=== PATIENT | female | born 1980 | race American Indian/Alaskan Native ===

== ENCOUNTER 2016-12-29 23:52 | Emergency (ER) | payer MEDICAID ==
[2016-12-29 23:59] VITALS: BP 114/73
--- NOTE | 2016-12-30 03:42 | Emergency Department Report ---
ED ENT HPI - General Chief complaint: Upper Respiratory Infection Stated complaint: COUGH/CONGESTON/HEADACHE/RT EARACHE/SORE THROAT Time Seen by Provider: 12/30/16 02:47 Source: patient Mode of arrival: Ambulatory Limitations: No Limitations - History of Present Illness Initial comments: This is a 36-year-old female that presents with sore throat and right ear pain x 3 days. Patient describes sore throat as swallowing razer blades. 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 Patient denies headache, CP, cough, wheezing, SOB, abd pain, stiff neck, fever, chills, numbness, drooling, difficulty swallowing, or hoarseness. Patient has allergies to codeine and morphine. Denies significant past medical history. Patient stated when she takes antibiotics she developed these infection and stated she would like to be treated for yeast infection if antibiotics are prescribed. MD complaint: sore throat -: Gradual, days(s) (3) Location: R ear, throat Severity: moderate Severity scale (0 -10): 8 Consistency: constant Improves with: none Worsens with: swallowing Associated Symptoms: sore throat. denies: fever, cough, gum swelling, toothache , pain with swallowing, tinnitus, hearing loss, discharge from ear, rhinorrhea - Related Data Previous Rx's Medication Instructions Recorded Last Taken Type Cyclobenzaprine HCl [Flexeril 5 MG 5 mg PO TID #20 tab 02/23/16 Unknown Rx TAB] Ibuprofen [Motrin 800 MG tab] 800 mg PO Q8HR PRN #30 tablet 02/23/16 Unknown Rx ALBUTEROL Inhaler [ProAir HFA 2 puff IH QID PRN #1 inha 09/12/16 Unknown Rx Inhaler] Fluticasone [Flonase] 1 spray NS QDAY #1 bottle 09/12/16 Unknown Rx Naproxen [Naprosyn] 500 mg PO BID #30 tablet 09/12/16 Unknown Rx guaiFENesin/DEXTROMETHORPHAN 1 each PO Q12H #24 tab 09/12/16 Unknown Rx [Mucinex Dm ER 1,200-60 mg Tab] Amoxicillin 500 mg PO BID #20 capsule 12/30/16 Unknown Rx Fluconazole [Diflucan TAB] 150 mg PO ONCE #1 tablet 12/30/16 Unknown Rx Allergies Allergy/AdvReac Type Severity Reaction Status Date / Time codeine AdvReac Anaphylaxis Verified 06/11/14 10:06 morphine AdvReac Anaphylaxis Verified 06/11/14 10:06 ED Dental HPI - General Chief complaint: Upper Respiratory Infection Stated complaint: COUGH/CONGESTON/HEADACHE/RT EARACHE/SORE THROAT Time Seen by Provider: 12/30/16 02:47 Source: patient Mode of arrival: Ambulatory Limitations: No Limitations - Related Data Previous Rx's Medication Instructions Recorded Last Taken Type Cyclobenzaprine HCl [Flexeril 5 MG 5 mg PO TID #20 tab 02/23/16 Unknown Rx TAB] Ibuprofen [Motrin 800 MG tab] 800 mg PO Q8HR PRN #30 tablet 02/23/16 Unknown Rx ALBUTEROL Inhaler [ProAir HFA 2 puff IH QID PRN #1 inha 09/12/16 Unknown Rx Inhaler] Fluticasone [Flonase] 1 spray NS QDAY #1 bottle 09/12/16 Unknown Rx Naproxen [Naprosyn] 500 mg PO BID #30 tablet 09/12/16 Unknown Rx guaiFENesin/DEXTROMETHORPHAN 1 each PO Q12H #24 tab 09/12/16 Unknown Rx [Mucinex Dm ER 1,200-60 mg Tab] Amoxicillin 500 mg PO BID #20 capsule 12/30/16 Unknown Rx Fluconazole [Diflucan TAB] 150 mg PO ONCE #1 tablet 12/30/16 Unknown Rx Allergies Allergy/AdvReac Type Severity Reaction Status Date / Time codeine AdvReac Anaphylaxis Verified 06/11/14 10:06 morphine AdvReac Anaphylaxis Verified 06/11/14 10:06 ED Review of Systems ROS: Stated complaint: COUGH/CONGESTON/HEADACHE/RT EARACHE/SORE THROAT Other details as noted in HPI Constitutional: denies: chills, fever Eyes: denies: eye pain, eye discharge, vision change ENT: denies: ear pain, throat pain Respiratory: denies: cough, shortness of breath, wheezing Cardiovascular: denies: chest pain, palpitations Endocrine: no symptoms reported Gastrointestinal: denies: abdominal pain, nausea, diarrhea Genitourinary: denies: urgency, dysuria, discharge Musculoskeletal: denies: back pain, joint swelling, arthralgia Skin: denies: rash, lesions Neurological: denies: headache, weakness, paresthesias Psychiatric: denies: anxiety, depression Hematological/Lymphatic: denies: easy bleeding, easy bruising ED Past Medical Hx - Past Medical History Previous Medical History?: Yes Hx Asthma: Yes Hx Tuberculosis: Yes (PREVIOUSLY TREATED TWICE) Additional medical history: TB - Surgical History Past Surgical History?: Yes Additional Surgical History: x 4, Tubaligation, Ectopic x 2 - Social History Smoking Status: Never Smoker Substance Use Type: None - Medications Home Medications: Home Medications Medication Instructions Recorded Confirmed Last Taken Type Cyclobenzaprine HCl [Flexeril 5 MG 5 mg PO TID #20 tab 02/23/16 Unknown Rx TAB] Ibuprofen [Motrin 800 MG tab] 800 mg PO Q8HR PRN #30 tablet 02/23/16 Unknown Rx ALBUTEROL Inhaler [ProAir HFA 2 puff IH QID PRN #1 inha 09/12/16 Unknown Rx Inhaler] Fluticasone [Flonase] 1 spray NS QDAY #1 bottle 09/12/16 Unknown Rx Naproxen [Naprosyn] 500 mg PO BID #30 tablet 09/12/16 Unknown Rx guaiFENesin/DEXTROMETHORPHAN 1 each PO Q12H #24 tab 09/12/16 Unknown Rx [Mucinex Dm ER 1,200-60 mg Tab] Amoxicillin 500 mg PO BID #20 capsule 12/30/16 Unknown Rx Fluconazole [Diflucan TAB] 150 mg PO ONCE #1 tablet 12/30/16 Unknown Rx ED Physical Exam - General Limitations: No Limitations General appearance: alert, in no apparent distress - Head Head exam: Present: atraumatic, normocephalic, normal inspection - Eye Eye exam: Present: normal appearance, PERRL, EOMI. Absent: scleral icterus, conjunctival injection, nystagmus, periorbital swelling, periorbital tenderness - ENT ENT exam: Present: normal exam, mucous membranes moist, TM's normal bilaterally , normal external ear exam - Expanded ENT Exam Expanded Mouth exam: Present: normal external inspection, tongue normal. Absent: drooling, trismus, muffled voice, tongue elevation, laceration Teeth exam: Present: normal inspection Throat exam: Positive: tonsillar erythema, tonsillomegaly (2+), tonsillar exudate. Negative: R peritonsillar mass, L peritonsillar mass - Neck Neck exam: Present: normal inspection, full ROM. Absent: tenderness, meningismus, lymphadenopathy, thyromegaly - Respiratory Respiratory exam: Present: normal lung sounds bilaterally. Absent: respiratory distress, wheezes, rales, rhonchi, stridor, chest wall tenderness, accessory muscle use, decreased breath sounds, prolonged expiratory - Cardiovascular Cardiovascular Exam: Present: regular rate, normal rhythm, normal heart sounds. Absent: bradycardia, tachycardia, irregular rhythm, systolic murmur, diastolic murmur, rubs, gallop - GI/Abdominal GI/Abdominal exam: Present: soft, normal bowel sounds. Absent: distended, tenderness, guarding, rebound, rigid, diminished bowel sounds - Rectal Rectal exam: Present: deferred - Extremities Exam Extremities exam: Present: normal inspection, full ROM, normal capillary refill. Absent: tenderness, pedal edema, joint swelling, calf tenderness - Back Exam Back exam: Present: normal inspection, full ROM. Absent: tenderness, CVA tenderness (R), CVA tenderness (L), muscle spasm, paraspinal tenderness, vertebral tenderness, rash noted - Neurological Exam Neurological exam: Present: alert, oriented X3, CN II-XII intact, normal gait, reflexes normal - Psychiatric Psychiatric exam: Present: normal affect, normal mood - Skin Skin exam: Present: warm, dry, intact, normal color. Absent: rash ED Course Vital Signs 12/29/16 12/29/16 23:57 23:58 Temperature 98.3 F 98.3 F Pulse Rate 86 86 Respiratory 20 16 Rate Blood Pressure 114/73 Blood Pressure 114/73 [Right] O2 Sat by Pulse 97 97 Oximetry - Reevaluation(s) Reevaluation #1: 12/30/16 03:45 Patient is resting comfortably with no signs of distress noted. ED Medical Decision Making - Medical Decision Making Ed course: This is a 36-year-old female that presents with exudative tonsillitis. 1- patient received amoxicillin 500 mg by mouth 10 days at the time of discharge as well as Diflucan 150 mg 1. Patient received Diflucan because she stated anytime she takes antibiotics she gets yeast infection and will like to be treated for yeast infection. 2- at time time of discharge, the patient does not seem toxic or ill in appearance. No acute signs of distress noted. Patient agrees to discharge treatment plan of care. No further questions noted by the patient. 3 patient was instructed to follow-up with her primary care doctor in 3-5 days or if symptoms worsen return back to emergency room as soon as possible.- Critical care attestation.: If time is entered above; I have spent that time in minutes in the direct care of this critically ill patient, excluding procedure time. ED Disposition Clinical Impression: Exudative tonsillitis Disposition: TO HOME OR SELFCARE Is pt being admited?: No Does the pt Need Aspirin: No Condition: Stable Instructions: Amoxicillin (By mouth), Tonsillitis (ED) Additional Instructions: follow-up with your primary care doctor in 3-5 days or if symptoms worsen return back to emergency room as soon as possible. Take full course of antibiotics as prescribed. Prescriptions: Amoxicillin 500 mg PO BID #20 capsule Fluconazole [Diflucan TAB] 150 mg PO ONCE #1 tablet Referrals: MANPREET FULLER MD [Primary Care Provider] - 3-5 Days [facility] [Outside] - 3-5 Days [facility] [Outside] - 3-5 Days ZULEIMA BELCHER JR, MD [Staff Physician] - 3-5 Days Forms: Work/School Release Form(ED)
== END 2016-12-30 04:10 | disposition home or self-care (01) ==
LOC: ED 23:52
DX: J03.90 Acute tonsillitis, unspecified (principal); J45.909 Unspecified asthma, uncomplicated; Z88.5 Allergy status to narcotic agent
CPT/HCPCS: 99282

== ENCOUNTER 2018-02-12 17:40 | Emergency (ER) | payer SELFPAY ==
[2018-02-12 17:45] VITALS: BP 115/57
[2018-02-12] MEDS ORDERED: PERCOCET 5/325 PO ONE (21:05)
[2018-02-12] MEDS ORDERED: MOTRIN PO ONE (21:05)
--- NOTE | 2018-02-12 21:05 | Emergency Department Report ---
Upper Extremity - [facility] Chief Complaint: Extremity Injury, Lower Stated Complaint: FALL INJURY Time Seen by Provider: 02/12/18 21:04 ED Review of Systems ROS: Stated complaint: FALL INJURY Other details as noted in HPI ED Past Medical Hx - Past Medical History Hx Asthma: Yes Hx Tuberculosis: Yes (PREVIOUSLY TREATED TWICE) Additional medical history: TB - Surgical History Additional Surgical History: x 4, Tubaligation, Ectopic x 2 - Social History Smoking Status: Never Smoker Substance Use Type: None - Medications Home Medications: Home Medications Medication Instructions Recorded Confirmed Last Taken Type Cyclobenzaprine HCl [Flexeril 5 MG 5 mg PO TID #20 tab 02/23/16 Unknown Rx TAB] Ibuprofen [Motrin 800 MG tab] 800 mg PO Q8HR PRN #30 tablet 02/23/16 Unknown Rx ALBUTEROL Inhaler [ProAir HFA 2 puff IH QID PRN #1 inha 09/12/16 Unknown Rx Inhaler] Fluticasone [Flonase] 1 spray NS QDAY #1 bottle 09/12/16 Unknown Rx Naproxen [Naprosyn] 500 mg PO BID #30 tablet 09/12/16 Unknown Rx guaiFENesin/DEXTROMETHORPHAN 1 each PO Q12H #24 tab 09/12/16 Unknown Rx [Mucinex Dm ER 1,200-60 mg Tab] Amoxicillin 500 mg PO BID #20 capsule 12/30/16 Unknown Rx Fluconazole [Diflucan TAB] 150 mg PO ONCE #1 tablet 12/30/16 Unknown Rx Upper Extremity Exam - Exam General: Vital signs noted. No distress. Alert and acting appropriately. ED Course Vital Signs 02/12/18 17:42 Temperature 98.3 F Pulse Rate 66 Respiratory 18 Rate Blood Pressure 115/57 O2 Sat by Pulse 100 Oximetry Critical care attestation.: If time is entered above; I have spent that time in minutes in the direct care of this critically ill patient, excluding procedure time. ED Disposition Condition: Stable Referrals: PRIMARY CARE, [Primary Care Provider] - 3-5 Days
[2018-02-12] MEDS ORDERED: BENADRYL PO ONE (21:07)
--- NOTE | 2018-02-12 21:13 | XRay Report ---
FINAL REPORT PROCEDURE: XR ANKLE 3+V RT TECHNIQUE: RIGHT ankle radiographs, AP, lateral, and oblique views. CPT 32339 HISTORY: slip fall, pain to right ankle COMPARISON: No prior studies are available for comparison. FINDINGS: Fracture (s) and/or Dislocation(s): None. Alignment: Normal. Joint space(s): Normal. Soft tissues: Normal. Bone mineralization: Normal. Foreign bodies: None. Calcaneal spurring: None. IMPRESSION: Normal Examination.
--- NOTE | 2018-02-12 21:14 | XRay Report ---
FINAL REPORT PROCEDURE: XR FOOT 3+V RT TECHNIQUE: RIGHT foot radiographs, AP, lateral, and oblique views. CPT 54513 HISTORY: slip fall, pain to right ankle COMPARISON: No prior studies are available for comparison. FINDINGS: Fracture (s) and/or Dislocation(s): None . Alignment: Normal . Joint space(s): Normal . Soft tissues: Normal . Bone mineralization: Normal . Foreign bodies: None . Calcaneal spurring: None . IMPRESSION: Normal Examination .
--- NOTE | 2018-02-12 22:22 | Emergency Department Report ---
ED Lower Extremity HPI - General Chief Complaint: Extremity Injury, Lower Stated Complaint: FALL INJURY Time Seen by Provider: 02/12/18 21:04 Source: patient, family, EMS Mode of arrival: Wheelchair Limitations: Physical Limitation - History of Present Illness Initial Comments: This is a 37-year-old female patient who reports that she was in a mall walk-in and she slipped and fell and twisted her right ankle. She is having pain to her right foot and ankle. Pain is 8 out of 10 and achy. Worse with movement and walk-in no alleviating factors. She denies any numbness or tingling. She denies wet surface. She denies any head injury or back injury. Denies any neck pain or stiffness. Pain is localized to her right foot and ankle. MD Complaint: ankle injury, foot injury -: This evening Injury: Ankle: Right (pain and swelling after twisting), Foot: Right (pain and swelling after twisting) Type of Injury: other (twisted right ankle mall) Place: street/outdoors Severity: severe Severity scale (0 -10): 9 Improves With: nothing Worsens With: weight bearing, movement, palpation Context: walking, other (twisting injury) Associated Symptoms: swelling, able to partially bear weight. denies: snap/pop sensation, numbness, tingling Treatments Prior to Arrival: other (none) - Related Data Previous Rx's Medication Instructions Recorded Last Taken Type Cyclobenzaprine HCl [Flexeril 5 MG 5 mg PO TID #20 tab 02/23/16 Unknown Rx TAB] Ibuprofen [Motrin 800 MG tab] 800 mg PO Q8HR PRN #30 tablet 02/23/16 Unknown Rx ALBUTEROL Inhaler [ProAir HFA 2 puff IH QID PRN #1 inha 09/12/16 Unknown Rx Inhaler] Fluticasone [Flonase] 1 spray NS QDAY #1 bottle 09/12/16 Unknown Rx Naproxen [Naprosyn] 500 mg PO BID #30 tablet 09/12/16 Unknown Rx guaiFENesin/DEXTROMETHORPHAN 1 each PO Q12H #24 tab 09/12/16 Unknown Rx [Mucinex Dm ER 1,200-60 mg Tab] Amoxicillin 500 mg PO BID #20 capsule 12/30/16 Unknown Rx Fluconazole [Diflucan TAB] 150 mg PO ONCE #1 tablet 12/30/16 Unknown Rx Ibuprofen [Motrin] 800 mg PO Q8HR PRN #15 tablet 02/12/18 Unknown Rx Allergies Allergy/AdvReac Type Severity Reaction Status Date / Time latex Allergy Unknown Verified 02/12/18 17:46 codeine AdvReac Anaphylaxis Verified 06/11/14 10:06 morphine AdvReac Anaphylaxis Verified 06/11/14 10:06 ED Review of Systems ROS: Stated complaint: FALL INJURY Other details as noted in HPI Constitutional: denies: chills, fever Eyes: eye discharge ENT: denies: epistaxis, congestion Respiratory: denies: cough, orthopnea, shortness of breath, SOB with exertion, SOB at rest, stridor, wheezing Cardiovascular: denies: chest pain, palpitations, dyspnea on exertion, edema, syncope, paroxysmal nocturnal dyspnea Gastrointestinal: denies: abdominal pain, nausea, vomiting Musculoskeletal: joint swelling, arthralgia. denies: back pain, myalgia Skin: denies: rash, lesions Neurological: abnormal gait. denies: headache, weakness, numbness, paresthesias , confusion, vertigo ED Past Medical Hx - Past Medical History Previous Medical History?: Yes Hx Asthma: Yes Hx Tuberculosis: Yes (PREVIOUSLY TREATED TWICE) Additional medical history: TB - Surgical History Past Surgical History?: Yes Additional Surgical History: x 4, Tubaligation, Ectopic x 2 - Family History Family history: hypertension - Social History Smoking Status: Never Smoker Substance Use Type: None - Medications Home Medications: Home Medications Medication Instructions Recorded Confirmed Last Taken Type Cyclobenzaprine HCl [Flexeril 5 MG 5 mg PO TID #20 tab 02/23/16 Unknown Rx TAB] Ibuprofen [Motrin 800 MG tab] 800 mg PO Q8HR PRN #30 tablet 02/23/16 Unknown Rx ALBUTEROL Inhaler [ProAir HFA 2 puff IH QID PRN #1 inha 09/12/16 Unknown Rx Inhaler] Fluticasone [Flonase] 1 spray NS QDAY #1 bottle 09/12/16 Unknown Rx Naproxen [Naprosyn] 500 mg PO BID #30 tablet 09/12/16 Unknown Rx guaiFENesin/DEXTROMETHORPHAN 1 each PO Q12H #24 tab 09/12/16 Unknown Rx [Mucinex Dm ER 1,200-60 mg Tab] Amoxicillin 500 mg PO BID #20 capsule 12/30/16 Unknown Rx Fluconazole [Diflucan TAB] 150 mg PO ONCE #1 tablet 12/30/16 Unknown Rx Ibuprofen [Motrin] 800 mg PO Q8HR PRN #15 tablet 02/12/18 Unknown Rx ED Physical Exam - General Limitations: Physical Limitation General appearance: alert, in no apparent distress - Head Head exam: Present: atraumatic, normocephalic, normal inspection, other (normal exam) - Eye Eye exam: Present: normal appearance, PERRL, EOMI. Absent: nystagmus, periorbital swelling, periorbital tenderness Pupils: Present: normal accommodation - ENT ENT exam: Present: normal exam, normal orophraynx, mucous membranes moist, TM's normal bilaterally, normal external ear exam - Neck Neck exam: Present: normal inspection, full ROM. Absent: tenderness, lymphadenopathy - Respiratory Respiratory exam: Present: normal lung sounds bilaterally. Absent: respiratory distress, chest wall tenderness - Cardiovascular Cardiovascular Exam: Present: regular rate, normal rhythm, normal heart sounds. Absent: systolic murmur, diastolic murmur - GI/Abdominal GI/Abdominal exam: Present: soft, normal bowel sounds. Absent: distended, tenderness, guarding, rebound, rigid, organomegaly, mass, bruit, pulsatile mass , hernia - Extremities Exam Extremities exam: Present: normal inspection, tenderness (rt foot and ankle), normal capillary refill, joint swelling (right ankle with mild swelling and tenderness to palpate.), other (No cce. + 2 pulses in all extremities, no neurovascular compromise except patient with swelling to dorsal aspect, proximally right foot powder and also swelling to right outer ankle.). Absent: full ROM (Limited range of motion to right foot and ankle affecting. Active and passive range of motion), pedal edema, calf tenderness - Expanded Lower Extremity Exam Right Hip exam: Present: normal inspection, full ROM, pelvic stability. Absent: tenderness, swelling, abrasion, laceration, ecchymosis, deformity, crepidus, dislocation, erythema, external rotation, internal rotation, shortening Upper Leg exam: Present: normal inspection, full ROM. Absent: tenderness, swelling, abrasion, laceration, ecchymosis, deformity, crepidus, dislocation, erythema Knee exam: Present: normal inspection, full ROM, full knee extension. Absent: tenderness, swelling, abrasion, laceration, ecchymosis, deformity, crepidus, dislocation, erythema, effusion, pain w/ pronation/supination, posterior draw sign, pain/laxity with valgus, pain/laxity with varus Lower Leg exam: Present: normal inspection, full ROM. Absent: tenderness, swelling, abrasion, laceration, ecchymosis, deformity, crepidus, dislocation, erythema, palpable cord, Jud's sign Ankle exam: Present: tenderness (proximal right foot laterally and right outer ankle), swelling (right ankle). Absent: full ROM (limited range of motion to right foot and ankle due to pain. Patient says she cannot dorsiflex or plantar flex.), abrasion, laceration, ecchymosis, deformity, crepidus, dislocation, erythema, anterior draw sign Foot/Toe exam: Present: tenderness (she quit), swelling (minimal swelling proximal right outer foot). Absent: normal inspection, full ROM (patient says she cannot dorsiflex or plantar flex and she has pain with passive and active range of motion), abrasion, laceration, ecchymosis, deformity, crepidus, dislocation, erythema, amputation, puncture wound, foreign body, calcaneal tenderness, tenderness at base of 5th metatarsal, nail avulsion, subungual hematoma Neuro vascular tendon exam: Present: no vascular compromise, significant pain with passive ROM of distal joint. Absent: pulse deficit, abnormal cap refill, motor deficit, sensory deficit, tendon deficit, decreased fine/light touch, foot drop, peroneal nerve deficit Gait: Positive: antalgic - Back Exam Back exam: Present: normal inspection, full ROM. Absent: tenderness, CVA tenderness (R), CVA tenderness (L), muscle spasm, paraspinal tenderness, vertebral tenderness, rash noted - Neurological Exam Neurological exam: Present: alert, oriented X3, abnormal gait (abnormal gait to the right lower extremity foot and ankle. She is limping because she states she has pain and she cannot weight-bear for tomorrow due to excruciating pain.) , reflexes normal - Psychiatric Psychiatric exam: Present: normal affect, normal mood - Skin Skin exam: Present: warm, dry, intact, normal color. Absent: rash ED Course Vital Signs 02/12/18 17:42 Temperature 98.3 F Pulse Rate 66 Respiratory 18 Rate Blood Pressure 115/57 O2 Sat by Pulse 100 Oximetry - Reevaluation(s) Reevaluation #1: 02/12/18 22:21 Patient given ibuprofen 800 mg by mouth, Benadryl 50 mg by mouth and Percocet 5/ 325 mg 2 tablets by mouth for muscle scope to pain. She was relief of her pain. She said she had itching with codeine and I gave her Benadryl and she had no episode of vision. - Orthopedic Splinting/Casting Injury #1 Side: right Lower Extremity Injury Location: ankle, foot Lower Extremity Immobilizer: stirrup splint Other Orthopedic Equipment: crutches Additional Comments: Status post ankle therapy to right ankle patient with good color, movement, sensation and temperature to right foot. She has 2+ pedal pulses and no neurovascular compromise. ED Lower Extremity MDM - Radiology Data Radiology results: report reviewed X-ray of right foot and ankle dictated by radiologist and report reviewed by myself and normal exam. Please see below for details. Findings [facility] [address] [place] [address] XRay Report Signed Patient: FRANK JEWELL MR#: [id number] : 1980 Acct:[id number] Age/Sex: 37 / F ADM Date: 02/12/18 Loc: ED Attending Dr: Ordering Physician: JF GEORGE MD Date of Service: 02/12/18 Procedure(s): XR foot 3+V RT Accession Number(s): [id number] cc: JF GEORGE MD Fluoro Time In Minutes: FINAL REPORT PROCEDURE: XR FOOT 3+V RT TECHNIQUE: RIGHT foot radiographs, AP, lateral, and oblique views. CPT 33749 HISTORY: slip fall, pain to right ankle COMPARISON: No prior studies are available for comparison. FINDINGS: Fracture (s) and/or Dislocation(s): None . Alignment: Normal . Joint space(s): Normal . Soft tissues: Normal . Bone mineralization: Normal . Foreign bodies: None . Calcaneal spurring: None . IMPRESSION: Normal Examination . Transcribed By: [facility] [place] Dictated By: GREGORIO JOSHI Electronically Authenticated By: GREGORIO JOSHI Signed Date/Time: 02/12/182107 DD/ 07 TD/TT: 02/12/182107 Findings [facility] [address] [place] [address] XRay Report Signed Patient: FRANK JEEWLL MR#: [id number] : 1980 Acct:[id number] Age/Sex: 37 / F ADM Date: 02/12/18 Loc: ED Attending Dr: Ordering Physician: JF GEORGE MD Date of Service: 02/12/18 Procedure(s): XR ankle 3+V RT Accession Number(s): [id number] cc: JF GEORGE MD Fluoro Time In Minutes: FINAL REPORT PROCEDURE: XR ANKLE 3+V RT TECHNIQUE: RIGHT ankle radiographs, AP, lateral, and oblique views. CPT 48165 HISTORY: slip fall, pain to right ankle COMPARISON: No prior studies are available for comparison. FINDINGS: Fracture (s) and/or Dislocation(s): None. Alignment: Normal. Joint space(s): Normal. Soft tissues: Normal. Bone mineralization: Normal. Foreign bodies: None. Calcaneal spurring: None. IMPRESSION: Normal Examination. Transcribed By: [facility] [place] Dictated By: GREGORIO JOSHI Electronically Authenticated By: GREGORIO JOSHI Signed Date/Time: 02/12/182106 DD/ 06 TD/TT: 02/12/182106 - Medical Decision Making This is a 37-year-old female presented to the hospital visits that she accidentally twisted her right ankle in a mall this evening when and she is having pain to her right ankle and right foot with some swelling. She states it is very hard for her to walk because of pain. She is here to be evaluated. PT Seen and examined by myself and physical exam is normal except she has tenderness to right proximal other foot and right ankle. Tenderness is dorsal aspect of foot. No calcaneal tenderness. She has swelling to right ankle and also minimal swelling to dorsal thumb, proximal aspect of the right foot. Patient reports pain with active and passive range of motion to her right foot and ankle. She was asked to stand and walk and she says she cannot pick his it is very painful to walk. Patient was given Percocet 5/325 2 tablets by mouth, visual milligram by mouth because she says she itches and she takes Percocet and Motrin 800 mg by mouth in emergency room which relieved her pain. She has + 2 pedal pulses and capillary refill is less than 2 seconds. She has good color , sensation, temperature with decreased movement due to pain to her right foot. See procedure note for splinting would ankle stirrup and crutches. Assessment/plan Right foot and ankle sprain-mild secondary to twisting injury. Arthralgia right foot and ankle Patient given pain medication in emergency room which relieved her pain. Rice therapy explained Right ankle stirrup and she has good pulses after ankle stirrup brace. She was given crutches with training. Please see procedure note for details Patient discharged home with her friend in stable condition. Vital signs are stable and she is afebrile. Pain control. Patient discharged home with prescription for Motrin and to follow-up with orthopedic doctor in 2-3 days. She voiced understanding. - Differential Diagnosis FX, dislocation, sprain, strain, musculoskeletal pain Critical care attestation.: If time is entered above; I have spent that time in minutes in the direct care of this critically ill patient, excluding procedure time. ED Disposition Clinical Impression: Pain in right ankle and joints of right foot Strain of right ankle and foot Qualifiers: Encounter type: initial encounter Qualified Code(s): S96.911A - Strain of unspecified muscle and tendon at ankle and foot level, right foot, initial encounter Disposition: DC- TO HOME OR SELFCARE Is pt being admited?: No Does the pt Need Aspirin: No Condition: Stable Instructions: Arthralgia (ED), Foot Sprain (ED), Ankle Stirrup Splint (ED), Ankle Sprain (ED), Crutch Instructions (ED), RICE Therapy (ED) Additional Instructions: Please follow up with orthopedic doctor as instructed. See discharge instruction on use of crutches and Rice therapy Take Motrin for pain but please take with food this medication can cause nausea Referrals: PRIMARY CARE, [Primary Care Provider] - 2-3 Days GRADY VASQUEZ MD [Staff Physician] - 2-3 Days Forms: Work/School Release Form(ED)
== END 2018-02-12 23:25 | disposition home or self-care (01) ==
LOC: ED 17:40
DX: S96.911A Strain of unspecified muscle and tendon at ankle and foot level, right foot, initial encounter (principal); J45.909 Unspecified asthma, uncomplicated; Z98.51 Tubal ligation status; Z91.040 Latex allergy status; Z88.5 Allergy status to narcotic agent; Z88.6 Allergy status to analgesic agent; W01.0XXA Fall on same level from slipping, tripping and stumbling without subsequent striking against object, initial encounter; Y93.89 Activity, other specified; Y92.410 Unspecified street and highway as the place of occurrence of the external cause; Y99.8 Other external cause status
CPT/HCPCS: 99284